=== PATIENT | female | born 1960 | race Two or more races ===

== ENCOUNTER 2024-09-12 15:41 | Emergency (ER) | payer MEDICARE, MEDICAID ==
[~2024-09-12] VITALS: Ht 160 cm; Wt 72.1 kg
[2024-09-12 19:20] VITALS: BP 165/80; PULSE 89; RESP 16; TEMP 97.8; O2SAT 97
[2024-09-12] MEDS: KETOROLAC TROMETH 30 MG/ML 1ML VIAL IM ONE (19:27)
[2024-09-12] MEDS: methylPREDNISolone SOD SUCC 125 MG/2 ML VL IM ONE (19:27)
--- NOTE | 2024-09-12 19:33 | ED.PDOC ---
Musculoskeletal HPI Comments PATIENT COMPLAINING OF RIGHT HIP PAIN AND RIGHT LEG PAIN. PATIENT STATES THREE WEEKS AGO SHE WAS TRYING TO MOVE 100 LB [employer] FROM HER LAWN. STATES SHE FELT A PULLING SENSATION IN HER RIGHT HIP. STATES SHE HAS BEEN ABLE TO WALK AND MOVE BUT THE PAIN HAS NOT GONE AWAY. SAYS SHE WENT TO DR. HESTER AND THEY DID GIVE HER MEDICATIONS, 5-10 PILLS BUT STATES HE WAS IT DID NOT HELP. DOES NOT REMEMBER WHAT THEY WERE. PATIENT DOES REPORT A HISTORY OF LOWER BACK INJURY. Chief Complaint: Lower Extremity Time Seen by MD: 18:00 Reviewed Notes: Nurses Notes Allergies: Coded Allergies: Codeine (Verified Allergy, Unknown, 09/12/24) Penicillins (Verified Allergy, Unknown, 09/12/24) Information Source: Patient Mode of Arrival: Ambulatory Location: Right Extremity Location: Hip Past Medical History PAST MEDICAL HISTORY: Denies Surgical History: Denies all surgeries DIRECTOR OF UNDERGRADUATE ADMISSIONS History: No Pertinent DIRECTOR OF UNDERGRADUATE ADMISSIONS History Constitutional: denies: chills, diaphoresis, fatigue, fever, malaise, sweats, weakness, others EENTM: denies: blurred vision, double vision, ear bleeding, ear discharge, ear drainage, ear pain, ear ringing, eye pain, eye redness, hearing loss, mouth pa in, mouth swelling, nasal discharge, nose bleeding, nose congestion, nose pain, photophobia, tearing, throat pain, throat swelling, voice changes, others Respiratory: denies: cough, hemoptysis, orthopnea, SOB at rest, shortness of breath, SOB with excertion, stridor, wheezing, others Cardiovascular: denies: chest pain, dizzy spells, diaphoresis, Dyspnea on exertion, edema, irregular heart beat, left arm pain, lightheadedness, palpitations, PND, syncope, others Gastrointestinal: denies: abdomen distended, abdominal pain, blood streaked bowels, constipated, diarrhea, dysphagia, difficulty swallowing, hematemesis, melena, nausea, poor appetite, poor fluid intake, rectal bleeding, rectal pain, vomiting, others Genitourinary: denies: abnormal vagina bleeding, burning, dyspareunia, dysuria, flank pain, frequency, hematuria, incontinence, pain, , vagina discharge, urgency, others Neurological: denies: dizziness, fainting, headache, left sided numbness, left sided weakness, numbness, paresthesia, pre-existing deficit, right sided numbness, right sided weakness, seizure, speech problems, tingling, tremors, weakness, others Musculoskeletal: reports: muscle pain, muscle stiffness; denies: back pain, gout, joint pain, joint swelling, neck pain, others Integumetry: denies: bruises, change in color, change in hair/nails, dryness, laceration, lesions, lumps, rash, wounds, others Hematologic/Lymphatic: denies: anemia, blood clots, easy bleeding, easy bruising, swollen glands, others Physical Exam General Appearance: No Apparent Distress, Normal HEENT: Normal ENT Inspection, Pharynx Normal, TMs Normal Neck: Full Range of Motion, Non-Tender, Normal, Normal Inspection Respiratory: Chest Non-Tender, Lungs Clear, No Accessory Muscle Use, No Respiratory Distress, Normal Breath Sounds Cardiovascular: No Edema, No JVD, No Murmur, No Gallop, Normal Peripheral Pulses, Regular Rate/Rhythm Breast Exam: Deferred Gastrointestinal: No Organomegaly, Non Tender, No Pulsatile Mass, Normal Bowel Sounds, Soft Genitalia: Deferred Pelvic: Deferred Rectal: Deferred Extremities: No calf tenderness, Normal capillary refill, Normal inspection, Normal range of motion, Non-tender, No pedal edema Musculoskeletal : Apperance: Normal Neurologic: Alert, chief mechanical engineer II-XII nml as Tested, No Motor Deficits, Normal Affect, Normal Mood, No Sensory Deficits Cerebellar Function: Normal Reflexes: Normal Skin: Dry, Normal Color, Warm Lymphatic: No Adenopathy Was a procedure done? Was a procedure done?: No Differential Diagnosis EXT Differential Diagnosis: Compartment Syndrome, Fracture, Sprain, Dislocation X-Ray, Labs, Meds, VS Vital Signs Date Time Temp Pulse Resp B/P (MAP) Pulse Ox O2 Delivery O2 Flow Rate FiO2 09/12/24 19:20 89 16 97 Room Air* 0 21 09/12/24 19:20 97.8 89 16 165/80 (108) 97 97.8 09/12/24 17:17 98.9 97 18 155/65 (95) 98 98.9 Current Medications Medications (Trade) Dose Ordered Sig/Isac Route Start Time Stop Time Status Last Admin Ketorolac Tromethamine (Toradol Injection) 30 mg ONCE ONCE IM 09/12/24 18:45 09/12/24 18:46 DC 09/12/24 19:27 Methylprednisolone Sodium Succinate (Solu Medrol) 125 mg ONCE ONCE IM 09/12/24 18:45 09/12/24 18:46 DC 09/12/24 19:27 X-Ray, Labs, Meds, VS Comment IMAGING: X-RAYS AND CT SCANS WERE REVIEWED AND INTERPRETED BY THIS PROVIDER, IMAGING SHOWS NO FRACTURES AND NO PATHOLOGICAL DISEASE. PENDING RADIOLOGY REVIEW. LABORATORY: LABS REVIEWED AND INTERPRETED BY THIS PROVIDER. NO SIGNIFICANT ABNORMALITIES NOTED. PATIENT HAS PRIOR MEDICAL VISITS REVIEWED. MED RECONCILIATION PERFORMED VITAL SIGNS REVIEWED Time of 1ST Reevaluation: 19:59 Reevaluation 1ST: Improved Patient Education/Counseling: Diagnosis, Treatment, Need For Follow Up (FOLLOW UP WITH PCP IN THE NEXT 24-48 HOURS.) Family Education/Counseling: Diagnosis Departure 1 Departure Time of Disposition: 19:47 Impression: Primary Impression: Right hip pain Disposition: HOME / SELF CARE / HOMELESS Condition: Fair e-Prescriptions Ibuprofen Micronized (Ibuprofen) 800 Mg Tab 800 MG PO TID PRN, #40 TAB Prov: MARINE HUDSON 09/12/24 Cyclobenzaprine Hcl (Cyclobenzaprine Hcl) 5 Mg Tab 1 TAB PO TID PRN, #30 TAB Prov: MARINE HUDSON 09/12/24 Discharged With: Self Critical Care Note Critical Care Time?: No Stability Stability form required: No Heart Score Heart Score: Heart Score Response (Comments) Value History N/A 0 EKG N/A 0 Age N/A 0 Risk Factors N/A 0 Troponin N/A 0 Total 0 MARINE HUDSON Sep 12, 2024 19:33
[2024-09-12] MEDS ORDERED: IBUP-1455 PO (20:02)
[2024-09-12] MEDS ORDERED: CYCL-837 PO (20:02)
== END 2024-09-12 20:15 | disposition home or self-care (01) ==
LOC: ER 15:41
DX: M25.551 Pain in right hip (principal); Z88.0 Allergy status to penicillin; Z88.5 Allergy status to narcotic agent
CPT/HCPCS: 96372; 99284; J1885; J2919